=== PATIENT | female | born 1940 | race Two or more races ===

== ENCOUNTER 2023-09-11 09:16 | Inpatient (IN) | payer MEDICARE, MEDICAID ==
[2023-09-11] VITALS (8 sets, daily range): BP systolic 145–176; BP diastolic 50–80; PULSE 54–86; RESP 16–20; TEMP 97.4–98; O2SAT 96–98
[~2023-09-11] VITALS: Ht 152.4 cm; Wt 69.0 kg
[2023-09-11 09:57] LABS: Basophils # (auto) 0 10 ^3/uL (0-0.2); Basophils % (auto) 0.9 % (0.0-2.0); Eosinophils # (auto) 0.2 10 ^3/uL (0-0.8); Eosinophils % (auto) 4.1 % (0.0-7.0); Hemoglobin 9.3 g/dL (12.2-16.2); Lymphocytes # (auto) 1.5 10 ^3/uL (0.4-5.4); Lymphocytes % (auto) 32.1 % (10.0-50.0); Mean Corpuscular Hemoglobin 28.3 pg (28.0-32.0); Mean Corpuscular Hgb Conc. 34.4 g/dL (32.0-36.0); Mean Corpuscular Volume 82.3 fL (80.0-100.0); Monocytes # (auto) 0.4 10 ^3/uL (0-1.3); Monocytes % (auto) 8.3 % (0.0-12.0); Neutrophils # (auto) 2.5 10 ^3/uL (1.6-8.6); Neutrophils % (auto) 54.6 % (37.0-80.0); Red Blood Cells 3.28 10^6/uL (4.0-5.20); White Blood Cell 4.6 10^3/uL (4.4-10.8)
[2023-09-11] MEDS: cloNIDine HCL 0.1 MG TAB PO ONE (09:58)
[2023-09-11 10:13] LABS: Chloride 107 mmol/L (98-107); Potassium 4.7 mmol/L (3.5-5.1); Sodium 134 mmol/L (136-145)
[2023-09-11 10:14] LABS: Anion Gap 4 (5-15); Carbon Dioxide 23 mmol/L (20-30)
[2023-09-11 10:19] LABS: BUN/Creatinine Ratio 21.4 (10.0-20.0); Blood Urea Nitrogen 24 mg/dL (9-23); Glucose 106 mg/dL (74-106)
[2023-09-11 13:12] LABS: Urine Bacteria FEW /hpf (None Seen); Urine Blood Negative /uL (Negative); Urine Clarity Clear (Clear); Urine Color Light-Yellow (Yellow); Urine Protein, UAD 1+ (Negative); Urine Specific Gravity 1.007 (1.001-1.035); Urine Urobilinogen Normal (Negative); Urine WBC 7 /hpf (0 - 5); Urine pH 6.5 (5.0-9.0)
[2023-09-11] MEDS ORDERED: NITROGLYCERIN 0.4 MG SL TAB SL PRN (13:15)
[2023-09-11] MEDS ORDERED: ACETAMINOPHEN 325 MG TAB PO PRN (13:15)
[2023-09-11] MEDS ORDERED: HYDROcodone-ACET 5/325MG TAB PO PRN (13:15)
[2023-09-11] MEDS ORDERED: MORPHINE SULFATE INJ 2 MG/ml SYRG IV PRN (13:15)
[2023-09-11] MEDS ORDERED: DEXTROSE (50%) 50ML SYRG IV PRN (13:15)
[2023-09-11 14:41] LABS: Triglycerides 136 mg/dL (< 150)
[2023-09-11 14:42] LABS: LDL Cholesterol 133 mg/dL (< 100)
[2023-09-11 14:43] LABS: Cholesterol 194 mg/dL (< 200); HDL Cholesterol 43 mg/dL (40-59)
[2023-09-11] MEDS ORDERED: InsuLIN REG 1unit/0.01ml Soln (100units/ml) SC SCH (17:00)
[2023-09-11] MEDS ORDERED: ACCU-CHEK COMFORT CURVE STRIP VI SCH (17:00)
[2023-09-11] MEDS: LISINOPRIL 5 MG TAB PO SCH (18:52)
[2023-09-11] MEDS: hydrALAZINE HCL 20 MG/ML VL IV PRN (22:49)
[2023-09-12] VITALS (9 sets, daily range): BP systolic 110–193; BP diastolic 48–71; PULSE 58–74; RESP 16–20; TEMP 97.7–98.2; O2SAT 93–97
[2023-09-12 07:09] LABS: Basophils # (auto) 0 10 ^3/uL (0-0.2); Basophils % (auto) 0.9 % (0.0-2.0); Eosinophils # (auto) 0.3 10 ^3/uL (0-0.8); Eosinophils % (auto) 5.9 % (0.0-7.0); Hematocrit 25.2 % (36.0-46.0); Hemoglobin 8.5 g/dL (12.2-16.2); Lymphocytes # (auto) 1.5 10 ^3/uL (0.4-5.4); Mean Corpuscular Hemoglobin 27.8 pg (28.0-32.0); Mean Corpuscular Hgb Conc. 33.6 g/dL (32.0-36.0); Mean Corpuscular Volume 82.7 fL (80.0-100.0); Monocytes # (auto) 0.4 10 ^3/uL (0-1.3); Monocytes % (auto) 8.7 % (0.0-12.0); Neutrophils # (auto) 2.6 10 ^3/uL (1.6-8.6); Neutrophils % (auto) 53.5 % (37.0-80.0); Nucleated Red Blood Cells % 0.1 %; Red Blood Cells 3.05 10^6/uL (4.0-5.20); Red Cell Distribution Width 17.8 % (11.8-14.3); White Blood Cell 4.9 10^3/uL (4.4-10.8)
[2023-09-12 07:22] LABS: Alanine Aminotransferase 11 U/L (7-40); Alkaline Phosphatase 101 U/L (46-116); Calcium 8.9 mg/dL (8.5-10.1); Carbon Dioxide 23 mmol/L (20-30); Chloride 110 mmol/L (98-107)
[2023-09-12 07:23] LABS: Albumin 3.4 g/dL (3.2-4.8); Anion Gap 6 (5-15); Aspartate Aminotransferase 13 U/L (13-40); BUN/Creatinine Ratio 20.3 (10.0-20.0); Blood Urea Nitrogen 25 mg/dL (9-23); Glucose 89 mg/dL (74-106); Potassium 4.7 mmol/L (3.5-5.1); Sodium 139 mmol/L (136-145)
[2023-09-12 07:24] LABS: Bilirubin, Total 0.3 mg/dL (0.2-1.0); Total Protein 5.6 g/dL (5.7-8.2)
[2023-09-12] MEDS: ENOXAPARIN SOD 40 MG/0.4 ML SYRINGE SC SCH (09:48)
[2023-09-12] MEDS: LISINOPRIL 5 MG TAB PO SCH (15:57)
[2023-09-12] MEDS: ATORVASTATIN 20 MG TAB PO SCH (22:29)
[2023-09-12] MEDS: METOPROLOL TARTRATE 50 MG TAB PO SCH (22:30)
[2023-09-13 01:00] VITALS: BP 163/68; PULSE 66; RESP 18; TEMP 98; O2SAT 97
[2023-09-13 05:00] VITALS: BP 167/80; PULSE 63; RESP 18; TEMP 98; O2SAT 96
[2023-09-13 08:00] VITALS: PULSE 60
[2023-09-13 08:18] VITALS: BP 182/64; PULSE 72; RESP 17; TEMP 98.7; O2SAT 95
[2023-09-13] MEDS ORDERED: METO-158 PO (09:43)
[2023-09-13] MEDS ORDERED: LISI20TA56 PO (09:43)
[2023-09-13] MEDS ORDERED: AMLO1TAB23 PO (09:43)
[2023-09-13] MEDS ORDERED: LISINOPRIL 20 MG TAB PO ONE (09:45)
[2023-09-13] MEDS ORDERED: ATOR-507 PO (09:45)
[2023-09-13] MEDS: cloNIDine HCL 0.1 MG TAB PO PRN (10:46)
[2023-09-13] MEDS: amLODIPine BESYLATE 5 MG TAB PO SCH (10:47)
[2023-09-13 13:00] VITALS: BP 121/41; PULSE 85; RESP 18; TEMP 97.8; O2SAT 96
[2023-09-14] MEDS ORDERED: LISINOPRIL 20 MG TAB PO SCH (10:00)
== END 2023-09-13 15:30 | disposition home or self-care (01) | DRG 199 ==
LOC: ER 09:19 → TELE 13:12 → TELE-CENTR 16:55
PROVIDERS: ADMIT Nurse Practitioner Family; ATTEND Family Medicine
DX: I16.0 Hypertensive urgency (principal); G93.41 Metabolic encephalopathy; D63.8 Anemia in other chronic diseases classified elsewhere; E66.01 Morbid (severe) obesity due to excess calories; E78.00 Pure hypercholesterolemia, unspecified; Z79.899 Other long term (current) drug therapy; Z88.6 Allergy status to analgesic agent; Z88.0 Allergy status to penicillin; Z68.29 Body mass index [BMI] 29.0-29.9, adult
CPT/HCPCS: 36415; 80048; 80053; 80061; 81001; 83036; 84443; 84484; 85025; 97110; 97116; 97163; 97530; G0378

== ENCOUNTER 2024-01-28 10:14 | Inpatient (IN) | payer MEDICARE, MEDICAID ==
[~2024-01-28] VITALS: Ht 142.2 cm; Wt 70.3 kg
[2024-01-28] MEDS: SODIUM CHLORIDE 0.9% 1,000 ML IV ONE (00:35)
[~2024-01-28 10:14] MED LIST: AMLO1TAB23 PO; ATOR-507 PO; LISI20TA56 PO; METO-158 PO
--- NOTE | 2024-01-28 10:53 | ED.PDOC ---
History of Present Illness HPI Comments 83 year old female presents to the ED with chief complaint of hypertension. Patient reports that she has been experiencing right eye throbbing and redness since this morning along with associated high blood pressure with a systolic at 232 and 217. Patient denies any headache, chest pain, dizziness, N/V, or fever. Chief Complaint: High Blood Pressure Time Seen by MD: 10:50 Reviewed Notes: Nurses Notes, Medications, Allergies Allergies: Coded Allergies: Aspirin (Verified Allergy, Unknown, 09/11/23) Penicillins (Verified Allergy, Unknown, 09/11/23) Sulfa Antibiotics (Verified Allergy, Unknown, 09/11/23) Home Meds Active Scripts Atorvastatin Calcium (Lipitor) 40 Mg Tab, 1 TAB PO QPM, #90 TAB 3 Refills Prov:SIENNA MARCIAL MD 09/13/23 Metoprolol Tartrate (Metoprolol Tartrate) 50 Mg Tab, 50 MG PO BID, #180 TAB Prov:SIENNA MARCIAL MD 09/13/23 Lisinopril (Lisinopril) 20 Mg Tab, 20 MG PO DAILY, #90 TAB Prov:SIENNA MARCIAL MD 09/13/23 Amlodipine Besylate (Amlodipine Besylate) 10 Mg Tab, 10 MG PO DAILY, #90 TAB Prov:SIENNA MARCIAL MD 09/13/23 Information Source: Patient Mode of Arrival: Ambulatory Severity: Moderate Timing: Hours Duration: Since onset Prehospital treatment: None Past Medical History PAST MEDICAL HISTORY: Anemia, DM, HTN Surgical History: Denies all surgeries 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: Denies all PROOFSHEET CORRECTOR Hx Family History Family History: Unknown Social History Smoker: Non-Smoker Alcohol: Denies ETOH Use Drugs: Denies Drug Use Lives In: Home Constitutional: denies: chills, diaphoresis, fatigue, fever, malaise, sweats, weakness, others EENTM: reports: eye pain, eye redness; denies: blurred vision, double vision, ear bleeding, ear discharge, ear drainage, ear pain, ear ringing, hearing loss, mouth pain, mouth swelling, nasal discharge, nose bleeding, nose congestion, nose pain, photophobia, tearing, throat pain, throat swelling, voice changes, others Respiratory: denies: cough, hemoptysis, orthopnea, SOB at rest, shortness of breath, SOB with excertion, stridor, wheezing, others Cardiovascular: denies: chest pain, dizzy spells, diaphoresis, Dyspnea on exert ion, edema, irregular heart beat, left arm pain, lightheadedness, palpitations, PND, syncope, others Gastrointestinal: denies: abdomen distended, abdominal pain, blood streaked bowels, constipated, diarrhea, dysphagia, difficulty swallowing, hematemesis, melena, nausea, poor appetite, poor fluid intake, rectal bleeding, rectal pain, vomiting, others Genitourinary: denies: abnormal vagina bleeding, burning, dyspareunia, dysuria, flank pain, frequency, hematuria, incontinence, pain, , vagina discharge, urgency, others Neurological: denies: dizziness, fainting, headache, left sided numbness, left sided weakness, numbness, paresthesia, pre-existing deficit, right sided numbness, right sided weakness, seizure, speech problems, tingling, tremors, weakness, others Musculoskeletal: denies: back pain, gout, joint pain, joint swelling, muscle pain, muscle stiffness, neck pain, others Integumetry: denies: bruises, change in color, change in hair/nails, dryness, laceration, lesions, lumps, rash, wounds, others Allergic/Immunocompromised: denies: Difficulty Healing, Frequent Infections, Hives, Itching, others Hematologic/Lymphatic: denies: anemia, blood clots, easy bleeding, easy bruising, swollen glands, others Endocrine: denies: excessive hunger, excessive sweating, excessive thirst, excessive urination, flushing, intolerance to cold, intolerance to heat, unexplained weight gain, unexplained weight loss, others Psychiatric: denies: anxiety, bipolar disorder, depression, hopeless, panic disorder, schizophrenia, sleepless, suicidal, others All Other Systems: Reviewed and Negative Physical Exam General Appearance: Moderate Distress, Normal HEENT: Eye Lid (R) (Redness), Normal ENT Inspection, PERRL/EOMI Neck: Full Range of Motion, Non-Tender, Normal, Normal Inspection Respiratory: Chest Non-Tender, Lungs Clear, No Accessory Muscle Use, No Respiratory Distress, Normal Breath Sounds Cardiovascular: No Edema, No JVD, No Murmur, No Gallop, Normal Peripheral Pulses, Regular Rate/Rhythm Breast Exam: Deferred Gastrointestinal: No Organomegaly, Non Tender, No Pulsatile Mass, Normal Bowel Sounds, Soft Genitalia: Deferred Pelvic: Deferred Rectal: Deferred Extremities: No calf tenderness, Normal capillary refill, Normal inspection, Normal range of motion, Non-tender, No pedal edema Musculoskeletal : Apperance: Normal Neurologic: Alert, bottom turning lathe tender II-XII nml as Tested, No Motor Deficits, Normal Affect, Normal Mood, No Sensory Deficits Cerebellar Function: NOT DONE Reflexes: NOT DONE Skin: Dry, Normal Color, Warm Peripheral Pulses: 3+ Radial (R), 3+ Radial (L) Lymphatic: No Adenopathy Was a procedure done? Was a procedure done?: No Differential Dx Considerations may include: Hypertension Electrolyte imbalance X-Ray, Labs, Meds, VS Vital Signs Date Time Temp Pulse Resp B/P (MAP) Pulse Ox O2 Delivery O2 Flow Rate FiO2 01/28/24 13:19 54 16 131/83 (99) 99 01/28/24 13:11 54 131/83 01/28/24 10:34 97.3 57 16 163/82 (109) 98 Lab Test 01/28/24 10:53 Range/Units White Blood Count 7.2 4.4-10.8 10^3/uL Red Blood Count 3.56 L 4.0-5.20 10^6/uL Hemoglobin 11.0 L 12.2-16.2 g/dL Hematocrit 32.9 L 36.0-46.0 % Mean Corpuscular Volume 92.5 80.0-100.0 fL Mean Corpuscular Hemoglobin 30.9 28.0-32.0 pg Mean Corpuscular Hemoglobin Concent 33.4 32.0-36.0 g/dL Red Cell Distribution Width 14.6 H 11.8-14.3 % Platelet Count 354 140-450 10^3/uL Mean Platelet Volume 8.0 6.9-10.8 fL Neutrophils (%) (Auto) 58.2 37.0-80.0 % Lymphocytes (%) (Auto) 29.4 10.0-50.0 % Monocytes (%) (Auto) 6.7 0.0-12.0 % Eosinophils (%) (Auto) 5.0 0.0-7.0 % Basophils (%) (Auto) 0.7 0.0-2.0 % Neutrophils # (Auto) 4.2 1.6-8.6 10 ^3/uL Lymphocytes # (Auto) 2.1 0.4-5.4 10 ^3/uL Monocytes # (Auto) 0.5 0-1.3 10 ^3/uL Eosinophils # (Auto) 0.4 0-0.8 10 ^3/uL Basophils # (Auto) 0 0-0.2 10 ^3/uL Nucleated Red Blood Cells 0.1 % Sodium Level 139 136-145 mmol/L Potassium Level 4.8 3.5-5.1 mmol/L Chloride Level 114 H 98-107 mmol/L Carbon Dioxide Level 22 20-31 mmol/L Anion Gap 3 L 5-15 Blood Urea Nitrogen 22 9-23 mg/dL Creatinine 1.17 H 0.550-1.02 mg/dL Glomerular Filtration Rate Calc 46 >90 mL/min BUN/Creatinine Ratio 18.8 10.0-20.0 Serum Glucose 110 H 74-106 mg/dL Calcium Level 9.4 8.7-10.4 mg/dL Troponin I High Sensitivity 11 </=34 ng/L Patient alert pain Complaining of headache dizziness. Vitals stable. Answering all questions. Blood pressure elevated. Concerned about right eye lid swelling along with redness of the conjunctiva. Cardiac marker within normal limits. Possibly will need MRI. Explained to the patient. Continue cardiac monitoring. She will need to be admitted for further workup microvascular disease patient education. Time of 1ST Reevaluation: 11:50 Reevaluation 1ST: Unchanged Patient Education/Counseling: Diagnosis, Treatment Family Education/Counseling: Diagnosis, Treatment Departure 1 Departure Time of Disposition: 13:28 Impression: Primary Impression: Accelerated hypertension Additional Impressions: Headache Qualified Codes: R51.9 - Headache, unspecified Autonomic disorder Disposition: ADMITTED INPATIENT Admit to: Med Surg Condition: Guarded Critical Care Note Critical Care Time?: No Stability Stability form required: No Heart Score Heart Score: Heart Score Response (Comments) Value History N/A 0 EKG N/A 0 Age N/A 0 Risk Factors N/A 0 Troponin N/A 0 Total 0 I personally scribed for GER MULLINS MD ([email or web address]) on 01/28/24 at 10:53. Electronically submitted by Julio Mccarthy ([email or web address]). GER MULLINS MD Jan 28, 2024 10:53
[2024-01-28 11:36] LABS: Basophils # (auto) 0 10 ^3/uL (0-0.2); Basophils % (auto) 0.7 % (0.0-2.0); Eosinophils # (auto) 0.4 10 ^3/uL (0-0.8); Hematocrit 32.9 % (36.0-46.0); Lymphocytes # (auto) 2.1 10 ^3/uL (0.4-5.4); Lymphocytes % (auto) 29.4 % (10.0-50.0); Mean Corpuscular Hemoglobin 30.9 pg (28.0-32.0); Mean Corpuscular Hgb Conc. 33.4 g/dL (32.0-36.0); Mean Corpuscular Volume 92.5 fL (80.0-100.0); Monocytes # (auto) 0.5 10 ^3/uL (0-1.3); Monocytes % (auto) 6.7 % (0.0-12.0); Neutrophils # (auto) 4.2 10 ^3/uL (1.6-8.6); Neutrophils % (auto) 58.2 % (37.0-80.0); Nucleated Red Blood Cells % 0.1 %; Platelet Count (auto) 354 10^3/uL (140-450); Red Blood Cells 3.56 10^6/uL (4.0-5.20); Red Cell Distribution Width 14.6 % (11.8-14.3); White Blood Cell 7.2 10^3/uL (4.4-10.8)
[2024-01-28 11:44] LABS: Chloride 114 mmol/L (98-107); Potassium 4.8 mmol/L (3.5-5.1); Sodium 139 mmol/L (136-145)
[2024-01-28 11:45] LABS: Anion Gap 3 (5-15); Calcium 9.4 mg/dL (8.7-10.4); Carbon Dioxide 22 mmol/L (20-31)
[2024-01-28 11:50] LABS: BUN/Creatinine Ratio 18.8 (10.0-20.0); Blood Urea Nitrogen 22 mg/dL (9-23); Glucose 110 mg/dL (74-106)
[2024-01-28] MEDS: LABETALOL HCL 20 MG/4 ML VL IV ONE (13:11)
[2024-01-28] MEDS ORDERED: ONDANSETRON HCL 4 MG/2 ML VIAL IV PRN (20:45)
[2024-01-28] MEDS ORDERED: MORPHINE SULFATE INJ 2 MG/ml SYRG IV PRN (20:45)
[2024-01-28] MEDS ORDERED: HYDROcodone-ACET 5/325MG TAB PO PRN (20:45)
[2024-01-28] MEDS ORDERED: NITROGLYCERIN 0.4 MG SL TAB SL PRN (20:45)
--- NOTE | 2024-01-28 22:23 | DVHHPRES ---
History of Present Illness Resident Creating Document: MÓNICA DESHPANDE RESIDENT History of Present Illness This is a 83-year-old female with past medical history of hypertension, hyperlipidemia presented to the ED with a chief complaint of elevated blood pressure. The patient states that today she went to her PCP for routine checkup and found out elevated systolic blood pressure in repeated readings at 232, 217 and sent the patient to the ED for further management of elevated blood pressure. She denies chest pain, shortness of breath, dizziness, diaphoresis, headache, blurry vision, abdominal pain, nausea, vomiting or any change in bowel and bladder habit. Cardiovascular: HTN Past Surgical History: None Family History: None Smoke: No ALCOHOL: none Drugs: None Lives: with Family Review of Systems Constitutional: No: Fever, Chills, Sweats, Weakness, Malaise, Other Eyes: No: Pain, Vision change, Conjunctivae inflammation, Eyelid inflammation, Other, Redness ENT: No: Ear pain, Ear discharge, Nose pain, Nose discharge, Nose congestion, Mouth pain, Mouth swelling, Throat pain, Throat swelling, Other Respiratory: No: Cough, Dry, Shortness of breath, SOB with excertion, Wheezing, Hemoptysis, Pleuritic Pain, Sputum, Wheezing, Other Cardiovascular: No: Chest Pain, Palpitations, Orthopnea, Paroxysmal Noc. Dyspnea, Edema, Lt Headedness, Other Gastrointestinal: No: Nausea, Vomiting, Abdominal Pain, Diarrhea, Constipation, Melena, Hematochezia, Other Genitourinary: No Dysuria, No Frequency, No Incontinence, No Hematuria, No Retention, No Other Musculoskeletal: No: other, neck pain, shoulder pain, arm pain, back pain, hand pain, leg pain, foot pain Skin: No: Rash, Lesions, Jaundice, Bruising, Other Neurological: No: Weakness, Numbness, Incoordination, Change in speech, Confusion, Seizures, Other Allergies: Coded Allergies: Aspirin (Verified Allergy, Unknown, 09/11/23) Penicillins (Verified Allergy, Unknown, 09/11/23) Sulfa Antibiotics (Verified Allergy, Unknown, 09/11/23) Medications Current Medications Medications Dose Ordered Sig/Ivory Route Start Time Stop Time Status Last Admin Dose Admin Sodium Chloride 10 ml Q8HR IV 01/28/24 22:00 Acetaminophen/ Hydrocodone Bitart 1 tab Q4HP PRN PO 01/28/24 20:45 Ondansetron HCl 4 mg Q4HP PRN IV 01/28/24 20:45 Nitroglycerin 0.4 mg Q5MINP PRN SL 01/28/24 20:45 Morphine Sulfate 2 mg Q30M PRN IV 01/28/24 20:45 Metoprolol Tartrate 50 mg BID PO 01/29/24 10:00 UNV Patient Own Medication 10 mg DAILY PO 01/29/24 10:00 UNV Patient Own Medication 1 tab QPM PO 01/29/24 18:00 UNV Exam Vital Signs Vital Signs Date Time Temp Pulse Resp B/P (MAP) Pulse Ox O2 Delivery O2 Flow Rate FiO2 01/28/24 13:19 54 16 131/83 (99) 99 01/28/24 10:34 97.3 Exam Physical examination: General Appearance: Alert, Oriented X3, Cooperative, No acute distress HEENT: Atraumatic, PERRLA, EOMI, Mucous membrane moist/pink Respiratory: Clear to auscultation, Normal air movement Cardiovascular: Regular rate, Normal S1, Normal S2, No murmurs, no chest wall tenderness Abdominal: Normal bowel sounds, Soft, No tenderness, No hepatospenomegaly, No masses Extremities: No clubbing, No cyanosis, No edema, Normal pulses, No tenderness/swelling Skin: No rashes, No breakdown, No significant lesion Neuro: Normal gait, Normal speech, Strength at 5/5 X4 ext, Normal tone, Sensation intact, grossly intact cranial nerves. Psych/Mental Status: Mental status NL, Mood NL Labs/Xrays Labs Test 01/28/24 10:53 Range/Units White Blood Count 7.2 4.4-10.8 10^3/uL Red Blood Count 3.56 L 4.0-5.20 10^6/uL Hemoglobin 11.0 L 12.2-16.2 g/dL Hematocrit 32.9 L 36.0-46.0 % Mean Corpuscular Volume 92.5 80.0-100.0 fL Mean Corpuscular Hemoglobin 30.9 28.0-32.0 pg Mean Corpuscular Hemoglobin Concent 33.4 32.0-36.0 g/dL Red Cell Distribution Width 14.6 H 11.8-14.3 % Platelet Count 354 140-450 10^3/uL Mean Platelet Volume 8.0 6.9-10.8 fL Neutrophils (%) (Auto) 58.2 37.0-80.0 % Lymphocytes (%) (Auto) 29.4 10.0-50.0 % Monocytes (%) (Auto) 6.7 0.0-12.0 % Eosinophils (%) (Auto) 5.0 0.0-7.0 % Basophils (%) (Auto) 0.7 0.0-2.0 % Neutrophils # (Auto) 4.2 1.6-8.6 10 ^3/uL Lymphocytes # (Auto) 2.1 0.4-5.4 10 ^3/uL Monocytes # (Auto) 0.5 0-1.3 10 ^3/uL Eosinophils # (Auto) 0.4 0-0.8 10 ^3/uL Basophils # (Auto) 0 0-0.2 10 ^3/uL Nucleated Red Blood Cells 0.1 % Sodium Level 139 136-145 mmol/L Potassium Level 4.8 3.5-5.1 mmol/L Chloride Level 114 H 98-107 mmol/L Carbon Dioxide Level 22 20-31 mmol/L Anion Gap 3 L 5-15 Blood Urea Nitrogen 22 9-23 mg/dL Creatinine 1.17 H 0.550-1.02 mg/dL Glomerular Filtration Rate Calc 46 >90 mL/min BUN/Creatinine Ratio 18.8 10.0-20.0 Serum Glucose 110 H 74-106 mg/dL Calcium Level 9.4 8.7-10.4 mg/dL Troponin I High Sensitivity 11 </=34 ng/L Assessment/Plan Assessment/Plan Assessment and plan: # Hypertensive emergency - On admission blood pressure was 212/73 - IV hydralazine 10 mg q.6 p.r.n. - Continue amlodipine 10 mg p.o. daily and metoprolol tartrate 50 mg p.o. b.i.d. - Monitor BP closely. # CELESTE likely secondary to hemodynamically mediated/VMN - IV 1 L normal saline bolus given - Monitor BMP. # Acute cystitis - UA is consistent with UTI - Ordered urine bacterial culture - IV ceftriaxone 1 g daily. # DVT prophylaxis - Lovenox 40 mg sc daily Goal of care discussed with the patient for more than 20 minutes full code Plan of treatment discussed with Dr. Bray Plan discussed with: Patient, Other My Orders Orders - MÓNICA DESHPANDE RESIDENT Procedure Category Date Status Time Admit ADMIT 01/28/24 Transmitted 20:40 Allergies SOBEIDA 01/28/24 In Process 20:40 Code Status CODE 01/28/24 Transmitted 20:40 2 Gm Sodium Diet DIET 01/29/24 Transmitted Breakfast Sodium Chloride Lock PHA 01/28/24 In Process (Saline Lock Ns) 22:00 Hydrocodone-Acet PHA 01/28/24 In Process 5/325mg Tab ([place] 20:45 Ondansetron Hcl PHA 01/28/24 In Process (Zofran) 20:45 Fall Risk Precautions SOBEIDA 01/28/[address] 20:40 Complete Blood Count LAB 01/29/24 Verified 04:00 Comprehensive LAB 01/29/24 Verified Metabolic Panel 04:00 Pt Request For Service PT 01/28/24 Logged 20:40 Sequential SOBEIDA 01/28/24 In Process Compression Device Nitroglycerin PHA 01/28/24 In Process Sublingual (Ntrostat 20:45 Morphine Sulfate PHA 01/28/24 In Process Injection 20:45 Oxygen By Nasal RT 01/28/24 Transmitted Cannula 20:40 Stat Ekg For Chest SOBEIDA 01/28/24 In Process Pain 20:40 Notify Md Of Changes [facility] 01/28/24 In Process From Base 20:40 Critical Care Technician For [facility] 01/28/24 In Process 24 Hours 20:40 Emergency Dysrhythmia [facility] 01/28/24 In Process Protocol 20:40 Rhythm Strips Once [facility] 01/28/24 In Process Every Shift 20:40 B-Type Natriuretic LAB 01/28/24 Logged Peptide 22:17 Hemoglobin A1c LAB 01/28/24 Logged 22:17 Thyroid Stimulating LAB 01/28/24 Logged Hormone 22:17 Vitamin B12 LAB 01/28/24 Logged 22:17 Vitamin D, 25-Hydroxy LAB 01/28/24 Logged 22:17 Chest Portable XY 01/28/24 Logged 22:17 Sodium Chloride 0.9% PHA 01/28/24 Logged 22:30 Metoprolol Tartrate PHA 01/29/24 Transmitted Tablet (Lopressor Ta 10:00 (Nf) Amlodipine PHA 01/29/24 Logged Besylate 10:00 (Nf) Atorvastatin PHA 01/29/24 Logged Calcium (Lipitor) 18:00 Date of Service: Jan 28, 2024 Billing Provider: JOSE BRAY MD Common Visit Codes: [id number] INP/OBS CARE (HIGH) Secondary Visit Codes: [id number] CARE PLAN 30 MINUTES MÓNICA DESHPANDE RESIDENT Jan 28, 2024 22:23 JOSE BRAY MD Jan 29, 2024 13:43
[2024-01-28 22:40] VITALS: PULSE 62; RESP 16; O2SAT 98
--- NOTE | 2024-01-28 22:48 | DVH ---
CHEST RADIOGRAPH Indication:Chest pain Technique: Single frontal view of the chest was obtained Comparison: None FINDINGS: Lines and Tubes: None Lungs: No focal consolidation. Pleura: No effusion. No pneumothorax. Cardiomediastinal contours: Unremarkable Bones: No acute osseous abnormality. IMPRESSION: 1. No acute cardiopulmonary disease.
[2024-01-28] MEDS: SODIUM CHLOR 0.9% PF (SALINE LOCK) 10ML VIAL/SYR IV SCH (22:49)
[2024-01-28] MEDS: hydrALAZINE HCL 20 MG/ML VL IV PRN (22:53)
[2024-01-29] VITALS (8 sets, daily range): BP systolic 132–184; BP diastolic 57–71; PULSE 62–87; RESP 16–18; TEMP 97.8–98.9; O2SAT 95–99
[2024-01-29 01:28] LABS: Urine Bacteria MANY /hpf (None Seen); Urine Blood 1+ /uL (Negative); Urine Clarity Ex.Turbid (Clear); Urine Color Light-Brown (Yellow); Urine Protein, UAD 2+ (Negative); Urine Specific Gravity 1.016 (1.001-1.035); Urine Urobilinogen Normal (Negative); Urine WBC 1064 /hpf (0 - 5); Urine WBC Clumps PRESENT /hpf (None Seen)
[2024-01-29 06:33] LABS: Basophils # (auto) 0.1 10 ^3/uL (0-0.2); Basophils % (auto) 0.9 % (0.0-2.0); Eosinophils # (auto) 0.4 10 ^3/uL (0-0.8); Eosinophils % (auto) 5.7 % (0.0-7.0); Hematocrit 28.1 % (36.0-46.0); Hemoglobin 9.6 g/dL (12.2-16.2); Lymphocytes # (auto) 1.8 10 ^3/uL (0.4-5.4); Mean Corpuscular Hemoglobin 30.8 pg (28.0-32.0); Mean Corpuscular Hgb Conc. 34.3 g/dL (32.0-36.0); Mean Corpuscular Volume 89.9 fL (80.0-100.0); Monocytes # (auto) 0.5 10 ^3/uL (0-1.3); Monocytes % (auto) 7.4 % (0.0-12.0); Neutrophils # (auto) 3.9 10 ^3/uL (1.6-8.6); Nucleated Red Blood Cells % 0.1 %; Platelet Count (auto) 288 10^3/uL (140-450); Red Blood Cells 3.13 10^6/uL (4.0-5.20); Red Cell Distribution Width 14.3 % (11.8-14.3); White Blood Cell 6.7 10^3/uL (4.4-10.8)
[2024-01-29 06:44] LABS: Albumin 3.4 g/dL (3.2-4.8); Alkaline Phosphatase 120 U/L (46-116); Anion Gap 10 (5-15); Aspartate Aminotransferase 15 U/L (13-40); BUN/Creatinine Ratio 25.5 (10.0-20.0); Bilirubin, Total 0.3 mg/dL (0.2-1.0); Blood Urea Nitrogen 28 mg/dL (9-23); Carbon Dioxide 19 mmol/L (20-31); Chloride 114 mmol/L (98-107); Glucose 103 mg/dL (74-106); Potassium 4.4 mmol/L (3.5-5.1); Sodium 143 mmol/L (136-145); Total Protein 5.6 g/dL (5.7-8.2)
[2024-01-29 07:01] LABS: Alanine Aminotransferase < 9 U/L (7-40)
[2024-01-29] MEDS ORDERED: cefTRIAXone 1GM/50ML D5W 50 ML IV SCH (09:00)
[2024-01-29] MEDS ORDERED: amLODIPine BESYLATE 5 MG TAB PO SCH ×2 (10:00)
[2024-01-29] MEDS ORDERED: NIFEdipine ER 30 MG TAB PO SCH (10:00)
[2024-01-29] MEDS ORDERED: METOPROLOL TARTRATE 50 MG TAB PO SCH (10:00)
[2024-01-29] MEDS: NIFEdipine ER 30 MG TAB PO SCH (10:17)
[2024-01-29] MEDS: METOPROLOL SUCCINATE XL 50 MG TAB PO SCH (10:17)
[2024-01-29] MEDS: ENOXAPARIN SOD 40 MG/0.4 ML SYRINGE SC SCH (10:17)
[2024-01-29] MEDS: ENALAPRIL MALEATE 2.5 MG TAB PO SCH (10:27)
[2024-01-29] MEDS: CEPHALEXIN 250 MG CAP PO SCH (13:03)
[2024-01-29] MEDS ORDERED: CHOL500033 PO (15:36)
[2024-01-29] MEDS ORDERED: FERR325T24 PO (15:36)
--- NOTE | 2024-01-29 18:41 | DVHPNRES ---
Progress Note Date Seen: Jan 29, 2024 Resident Creating Document: TERRI HAYES RESIDENT Medical Necessity Reason Pt with a Central, PICC or Fol: No Subjective Review of Systems Patient is a 83-year-old female with past medical history of hypertension, dyslipidemia, anemia and ?Diabetes presented to the ER due to uncontrolled hypertension. According to the patient, she was visiting her PCP when she was noted to have a very high blood pressure in 200s/? And she was subsequently sent to the ER. She denied having any associated symptoms. Past surgical history: Tonsillectomy Home medications: Metoprolol tartrate, amlodipine, atorvastatin, ferrous sulfate, lisinopril Past Hospitalization: 2023 for uncontrolled hypertension Social & Personal history: Patient lives with her daughter. Denies smoking, alcohol or drugs. Allergies: Aspirin, penicillin, sulfa Patient seen and examined at bedside. Patient is alert and oriented to time, place person and responding to all questions. General: Reports feeling more fatigued Eyes: No Pain, No Vision change, No Conjunctivae inflammation, No Eyelid inflammation, No Other, No Redness ENT: No Ear pain, No Ear discharge, No Nose pain, No Nose discharge, No Nose congestion, No Mouth pain, No Mouth swelling, No Throat pain, No Throat swelling, No Other Cardiovascular: No Chest Pain, No Palpitations, No Orthopnea, No Paroxysmal No Dyspnea, No Edema, No Lt Headedness, No Other Respiratory: No Cough, No Dry, No Shortness of breath, No SOB with exertion, No Wheezing, No Hemoptysis, No Pleuritic Pain, No Sputum, No Other Gastrointestinal: No Nausea, No Vomiting, No Abdominal Pain, No Diarrhea, No Constipation, No Melena, No Hematochezia, No Other Genitourinary: No Dysuria, Frequency, No Incontinence, No Hematuria, No Retention, No Other Musculoskeletal: No other, No neck pain, No shoulder pain, No arm pain, No back pain, No hand pain, No leg pain, No foot pain Skin: No Rash, No Lesions, No Jaundice, No Bruising, No Other Psychiatric: Reports feeling more depressed than usual, however, denies any suicidal or homicidal ideation Objective vital signs Vital Sign Date Time Temp Pulse Resp B/P (MAP) Pulse Ox O2 Delivery O2 Flow Rate FiO2 01/29/24 17:19 98.0 75 16 148/71 (96) 96 98.0 01/29/24 13:27 Room Air* 0 21 medications Current Medications Medications Dose Ordered Sig/Ivory Route Start Time Stop Time Status Last Admin Dose Admin Sodium Chloride 10 ml Q8HR IV 01/28/24 22:00 01/29/24 13:03 10 ML Enoxaparin Sodium 40 mg DAILY SC 01/29/24 10:00 01/29/24 10:17 40 MG Cephalexin 250 mg Q6HR PO 01/29/24 12:00 02/03/24 11:59 01/29/24 13:03 250 MG Metoprolol Succinate 100 mg DAILY PO 01/29/24 10:00 01/29/24 10:17 100 MG Nifedipine 90 mg DAILY PO 01/29/24 10:00 01/29/24 10:17 90 MG Enalapril Maleate 2.5 mg DAILY PO 01/29/24 10:00 01/29/24 10:27 2.5 MG Examination General Appearance: Cooperative. Well developed. Well nourished. NAD Head Exam: Normal inspection Neck Exam: Normal inspection. Non-tender. Normal alignment Pulmonary/Respiratory: Chest non-tender. Clear bilateral breath sounds, no crackles, no wheezing. Cardiovascular/Chest: Regular rate and rhythm. No murmurs. No JVD. Peripheral Pulses: 2+ Radial (R). 2+ Radial (L). 2+ Pedal (R). 2+ Pedal (L) Abdominal Exam: Normal bowel sounds. Soft. normal abdomen, no visible veins, Nontender. No hepatospenomegaly. No masses Ankle Exam: Negative ankle edema Lower extremities: Negative lower extremity edema Neuro/Mental Status: A&O x4. Coherent. Thoughts/Psych: Normal thought pattern. Appropriate mood and affect. Good judgement and insight Skin Exam: Normal inspection. Normal color. Warm. Dry laboratory and microbiology Laboratory Tests 01/29/24 05:29 Test 01/29/24 05:29 Range/Units Serum Glucose 103 74-106 mg/dL Problem List/Assessment/Plan Problem List/Assessment/Plan Hypertensive urgency versus emergency, improving - CXR: No acute cardiopulmonary disease - nifedipine ER 90 mg p.o. daily - metoprolol succinate 100 mg p.o. daily - enalapril 2.5 mg p.o. daily CELESTE likely hemodynamically mediated, on questionable CKD (baseline GFR unavailable) Chronic anemia, likely of chronic disease - we will continue to monitor Acute complicated UTI - cephalexin 250 mg p.o. q.6 hours DVT prophylaxis: Levonox 40mg Goals of care: Full code, discussed for >16 minutes on 01/29/24 Plan discussed with patient Plan discussed with Dr. Mendenhall Plan discussed with: Patient, Other (RN) Date of Service: Jan 29, 2024 Billing Provider: MARISELA MENDENHALL MD Common Visit Codes: [id number] INP/OBS CARE(HIGH) Coding Comment Comment Attending Attestation I saw and evaluated the patient. I reviewed the residents note and agree with findings and plan as documented in the residents note except as documented below. 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
[2024-01-29] MEDS ORDERED: ATORVASTATIN 20 MG TAB PO SCH (22:00)
[2024-01-30] VITALS (7 sets, daily range): BP systolic 147–182; BP diastolic 56–69; PULSE 58–77; RESP 17–20; TEMP 97.3–99.1; O2SAT 94–97
[2024-01-30 05:30] LABS: Basophils # (auto) 0 10 ^3/uL (0-0.2); Basophils % (auto) 0.6 % (0.0-2.0); Eosinophils # (auto) 0.4 10 ^3/uL (0-0.8); Eosinophils % (auto) 5.6 % (0.0-7.0); Hematocrit 29.7 % (36.0-46.0); Lymphocytes % (auto) 26.4 % (10.0-50.0); Mean Corpuscular Hgb Conc. 33.6 g/dL (32.0-36.0); Mean Corpuscular Volume 89.4 fL (80.0-100.0); Monocytes # (auto) 0.7 10 ^3/uL (0-1.3); Monocytes % (auto) 9.6 % (0.0-12.0); Neutrophils # (auto) 4.4 10 ^3/uL (1.6-8.6); Neutrophils % (auto) 57.8 % (37.0-80.0); Nucleated Red Blood Cells % 0.1 %; Platelet Count (auto) 311 10^3/uL (140-450); Red Blood Cells 3.32 10^6/uL (4.0-5.20); Red Cell Distribution Width 14.2 % (11.8-14.3); White Blood Cell 7.6 10^3/uL (4.4-10.8)
[2024-01-30 05:41] LABS: Chloride 113 mmol/L (98-107); Potassium 4.3 mmol/L (3.5-5.1); Sodium 143 mmol/L (136-145)
[2024-01-30 05:42] LABS: Anion Gap 9 (5-15); Calcium 9.3 mg/dL (8.7-10.4); Carbon Dioxide 21 mmol/L (20-31)
[2024-01-30 05:47] LABS: BUN/Creatinine Ratio 19.2 (10.0-20.0); Blood Urea Nitrogen 24 mg/dL (9-23); Glucose 105 mg/dL (74-106)
[2024-01-30] MEDS: NIFEdipine ER 30 MG TAB PO SCH (09:58)
--- NOTE | 2024-01-30 12:56 | DVHDSRES ---
Discharge Summary Date of Admission Resident Creating Document: TERRI HAYES RESIDENT Jan 28, 2024 at 20:40 Date of Discharge: Jan 30, 2024 Admitting Diagnosis Hypertensive urgency Labs/Diagnostic Data: Laboratory Results Test 01/30/24 05:14 01/29/24 05:29 01/29/24 00:40 01/28/24 23:08 White Blood Count 7.6 10^3/uL (4.4-10.8) Red Blood Count 3.32 10^6/uL (4.0-5.20) Hemoglobin 10.0 g/dL (12.2-16.2) Hematocrit 29.7 % (36.0-46.0) Mean Corpuscular Volume 89.4 fL (80.0-100.0) Mean Corpuscular Hemoglobin 30.0 pg (28.0-32.0) Mean Corpuscular Hemoglobin Concent 33.6 g/dL (32.0-36.0) Red Cell Distribution Width 14.2 % (11.8-14.3) Platelet Count 311 10^3/uL (140-450) Mean Platelet Volume 7.7 fL (6.9-10.8) Neutrophils (%) (Auto) 57.8 % (37.0-80.0) Lymphocytes (%) (Auto) 26.4 % (10.0-50.0) Monocytes (%) (Auto) 9.6 % (0.0-12.0) Eosinophils (%) (Auto) 5.6 % (0.0-7.0) Basophils (%) (Auto) 0.6 % (0.0-2.0) Neutrophils # (Auto) 4.4 10 ^3/uL (1.6-8.6) Lymphocytes # (Auto) 2.0 10 ^3/uL (0.4-5.4) Monocytes # (Auto) 0.7 10 ^3/uL (0-1.3) Eosinophils # (Auto) 0.4 10 ^3/uL (0-0.8) Basophils # (Auto) 0 10 ^3/uL (0-0.2) Nucleated Red Blood Cells 0.1 % Sodium Level 143 mmol/L (136-145) Potassium Level 4.3 mmol/L (3.5-5.1) Chloride Level 113 mmol/L (98-107) Carbon Dioxide Level 21 mmol/L (20-31) Anion Gap 9 (5-15) Blood Urea Nitrogen 24 mg/dL (9-23) Creatinine 1.25 mg/dL (0.550-1.02) Glomerular Filtration Rate Calc 43 mL/min (>90) BUN/Creatinine Ratio 19.2 (10.0-20.0) Serum Glucose 105 mg/dL (74-106) Calcium Level 9.3 mg/dL (8.7-10.4) Total Bilirubin 0.3 mg/dL (0.2-1.0) Aspartate Amino Transferase (AST) 15 U/L (13-40) Alanine Aminotransferase (ALT) < 9 U/L (7-40) Alkaline Phosphatase 120 U/L (46-116) Total Protein 5.6 g/dL (5.7-8.2) Albumin 3.4 g/dL (3.2-4.8) Urine Color Light-brown (Yellow) Urine Clarity Ex.turbid (Clear) Urine pH 6.0 (5.0-9.0) Urine Specific [place] 1.016 (1.001-1.035) Urine Protein 2+ (Negative) Urine Ketones Negative (Negative) Urine Blood 1+ /uL (Negative) Urine Nitrite Negative (Negative) Urine Bilirubin Negative (Negative) Urine Urobilinogen Normal mg/dL (Negative) Urine Leukocyte Esterase 3+ /uL (Negative) Urine RBC 23 /hpf (0 - 4) Urine WBC 1064 /hpf (0 - 5) Urine WBC Clumps Present /hpf (None Seen) Urine Squamous Epithelial Cells None seen /hpf (<5) Urine Bacteria Many /hpf (None Seen) Urine Glucose Normal mg/dL (Normal) B-Type Natriuretic Peptide 171.97 pg/mL (0-100) Test 01/28/24 10:53 Hemoglobin A1c 5.0 % A1C (<5.7) Troponin I High Sensitivity 11 ng/L (</=34) Vitamin B12 Level 976 pg/mL (211-911) Vitamin D 25-Hydroxy 72.6 ng/mL (30.0-100) Thyroid Stimulating Hormone (TSH) 2.16 uIU/mL (0.55-4.78) Other Laboratory Tests 01/30/24 05:14 Brief Hx & Hospital Course: Patient is a 83-year-old female with past medical history of hypertension, dyslipidemia, anemia and ?Diabetes presented to the ER due to uncontrolled hypertension. According to the patient, she was visiting her PCP when she was noted to have a very high blood pressure in 200s/? And she was subsequently sent to the ER. She denied having any associated symptoms. Hospital course: Chest x-ray showed no acute cardiopulmonary disease. Patient was started on nifedipine extended release 90 mg, metoprolol succinate 100 mg and enalapril 2.5 mg. For her symptomatic UTI, patient was also started on cephalexin 250 mg q.6 hours. On the day of discharge, patient's blood pressure was adequately controlled and she appeared well without any active ongoing pain or discomfort. Patient's blood pressure was measured at bedside and was noted to be 151/56. Details of hospitalization and plan of care were discussed with the patient and family members at bedside, all questions were answered and concerns addressed. Patient was sent home with hydralazine 25 mg as needed q.p.m. if blood pressure greater than 150/90. Medication reconciliation was also completed with the patient at bedside and dosage and timing of medications were explained to the patient and family and also written down on paper and given to the patient to clarify medications. Her hospital course was uncomplicated. General Appearance: Cooperative. Well developed. Well nourished. NAD Head Exam: Normal inspection Neck Exam: Normal inspection. Non-tender. Normal alignment Pulmonary/Respiratory: Chest non-tender. Clear bilateral breath sounds, no crackles, no wheezing. Cardiovascular/Chest: Regular rate and rhythm. No murmurs. No JVD. Peripheral Pulses: 2+ Radial (R). 2+ Radial (L). 2+ Pedal (R). 2+ Pedal (L) Abdominal Exam: Normal bowel sounds. Soft. normal abdomen, no visible veins, Nontender. No hepatospenomegaly. No masses Ankle Exam: Negative ankle edema Lower extremities: Negative lower extremity edema Neuro/Mental Status: A&O x4. Coherent. Thoughts/Psych: Normal thought pattern. Appropriate mood and affect. Good judgement and insight Skin Exam: Normal inspection. Normal color. Warm. Dry Condition at Discharge: Good Final Diagnosis/Problems List Hypertensive urgency versus emergency, improved CELESTE likely hemodynamically mediated/V MN on questionable CKD, baseline GFR unavailable Chronic anemia, likely of chronic disease Acute complicated UTI Discharge Disposition: Home Discharge Instruct/Medications Diet: Cardiac 2g Na,low cholest Diet comment: Low-salt diet Follow Up/Referral: Please follow up with PCP on 02/04/2024 Medications: Amlodipine 10 mg q.p.m. Atorvastatin 40 mg q.p.m. Furosemide 20 mg every other day Lisinopril 20 mg q.a.m. Metoprolol 50 mg q.a.m. Hydralazine 25 mg if blood pressure greater than 150/90 q.p.m. Cephalexin 250 mg 4 times a day for 3 days Discharge Statement: "Patient was advised to return to the ER or call 911 if any headaches, dizziness, shortness of breath, chest pain, abdominal pain, bleeding, fevers, or worsening of medical condition. Patient was counseled about treatment plan, medications, possible side effects, patientverbalized understanding. All questions were answered to the best of my ability. This discharge took greater then 30 minutes in planning, reviewing documentation, counseling the patient, and discussing with other team members." ASSESSMENT ASSESSMENT Assessment TERRI HAYES RESIDENT Jan 30, 2024 12:55
[2024-01-30] MEDS: LACTULOSE 20Gm/30ML SOLN PO ONE (13:39)
[2024-01-30] MEDS ORDERED: CEPH250C PO (14:44)
[2024-01-30] MEDS ORDERED: HYDR25TA87 PO (14:44)
== END 2024-01-30 17:25 | disposition home or self-care (01) | DRG 199 ==
LOC: ER 10:14 → OVERFLOW 20:40 → CENTRAL 01-29 11:32
PROVIDERS: ADMIT Internal Medicine; ATTEND Internal Medicine
DX: I16.1 Hypertensive emergency (principal); N17.0 Acute kidney failure with tubular necrosis; E11.22 Type 2 diabetes mellitus with diabetic chronic kidney disease; N18.9 Chronic kidney disease, unspecified; G90.89 Other disorders of autonomic nervous system; E78.5 Hyperlipidemia, unspecified; I12.9 Hypertensive chronic kidney disease with stage 1 through stage 4 chronic kidney disease, or unspecified chronic kidney disease; D63.8 Anemia in other chronic diseases classified elsewhere; Z79.899 Other long term (current) drug therapy; Z79.4 Long term (current) use of insulin; I16.0 Hypertensive urgency; N39.0 Urinary tract infection, site not specified
CPT/HCPCS: 36415; 71045; 80048; 80053; 81001; 82306; 82607; 83036; 83880; 84443; 84484; 85025; 87086; 97110; 97116; 97163; 97530; G0378